=== PATIENT | female | born 1955 | race Caucasian/White ===

== ENCOUNTER 2020-03-11 12:24 | Inpatient (IN) | payer OTHER ==
[~2020-03-11] VITALS: Ht 177.8 cm; Wt 96.2 kg
--- NOTE | ~2020-03-11 | P ---
[facility] [place] [address] PROCEDURE REPORT Name: SAULO COMER Room #: 455-P [facility] IN M.R.#: [id number] Admission: 03/11/20 Attend Phys: Dilan Dejesus MD Discharge: Date of : 57 Report #: [id number] THIS REPORT FOR: cc: VIDHYA - No family physician/PCP FAM - No family physician/PCP Jayden Arita MD ~ CC: Dilan Dejesus [facility] physician/PCP Estuardo Jackson INPATIENT COLONOSCOPY REPORT BRIEF HISTORY: The patient is a 64-year-old woman with anemia and marked weight loss of 80 pounds. PREOPERATIVE DIAGNOSES: Anemia and weight loss. POSTOPERATIVE DIAGNOSES: 1. Small isolated ulcer, 60 cm. 2. Patchy exudative process, ascending colon, questionable colitis versus C. diff. 3. Moderate sigmoid diverticulosis coli. MEDICATIONS: Deep sedation with propofol per anesthesia. SPECIMENS: 1. Biopsy of proximal ascending colon, C. diff versus colitis. 2. Biopsy ulcer at 60 cm. ESTIMATED BLOOD LOSS: 3 mL. PROCEDURE: Colonoscopy to cecum and terminal ileum with biopsy. FINDINGS: Prior to propofol sedation, procedure of colonoscopy was discussed with the patient as well as potential risks and its complications. She indicates she understands and desires to proceed. DESCRIPTION OF PROCEDURE: With the patient in left lateral decubitus position, digital examination was completed, which revealed no abnormalities. Subsequently, the Olympus video colonoscope was introduced into the rectum, advanced under direct vision to the cecum, done with minimal difficulty. The cecum was identified by the ileocecal valve and the appendiceal orifice. With some difficulty, we were able to obtain a very brief look at the distal segment of terminal ileum, which was unremarkable. At that point, the scope was slowly withdrawn and careful circumferential views were obtained. Upon slow withdrawal of the scope, the prep was good. The mucosa was within normal limits, normal vascular pattern, normal light reflex. In the proximal ascending colon, there [facility] [address] [place] [address] PROCEDURE REPORT Name: SAULO COMER Room #: 455-P [facility] IN [facility].#: [id number] Admission: 03/11/20 Attend Phys: Dilan Dejesus MD Discharge: Date of : 56 Report #: [id number] was a patchy area of adherent exudative like material. I was able to wash some of this away and the underlying mucosa appeared to be intact. I did not see definite ulcerations, had a benign appearance. There was no evidence of mass or lesions. The exudative process raised the question of celiac disease, but it is very focal in this area of involvement is about 2 x 3 cm. Multiple biopsies were obtained. We also took a stool aspirate for C. diff toxin. Upon slow withdrawal of the scope, the mucosa was inspected. The mucosa otherwise was within normal limits, normal vascular pattern, normal light reflex. No abnormalities were noted until about 60 cm, at which point a shallow 15 x 15 mm ulcer was seen. There was surrounding erythema and it was flat. It had smooth and benign appearance. Biopsies were obtained. No other ulcers or inflammatory changes were seen elsewhere in the colon except as noted above. In the sigmoid colon, there was moderate diverticular disease without endoscopic evidence of diverticulitis. Scope was withdrawn in the rectum, no abnormalities were seen. Upon retroflexion, no abnormalities were seen. Scope was withdrawn. The patient tolerated the procedure well. DISPOSITION: The patient with findings as noted above. Since there was a patchy area in the proximal ascending colon, which might possibly be C. diff, we will empirically place her on metronidazole and awaits aspirate study and biopsies. However, none of the lesions I believe explains her anemia or weight loss. Please see upper endoscopy report for additional details. We will follow up on biopsies and samples obtained today. By: 1357 1421 Jayden Arita MD /nt
--- NOTE | ~2020-03-11 | P ---
[facility] [place] [address] PROCEDURE REPORT Name: SAULO COMER Room #: 455-P ADM IN M.R.#: [id number] Admission: 03/11/20 Attend Phys: Dilan Dejesus MD Discharge: Date of : 56 Report #: [id number] THIS REPORT FOR: cc: VIDHYA - No family physician/PCP VIDHYA - No family physician/PCP Jayden Arita MD ~ CC: Dilan Dejesus [facility] physician/PCP Estuardo Jackson INPATIENT UPPER ENDOSCOPY REPORT BRIEF HISTORY: The patient is a 64-year-old woman who was admitted to [facility] with anemia, 80-pound weight loss. She has had some regurgitation symptoms. PREOPERATIVE DIAGNOSES: Anemia and weight loss. POSTOPERATIVE DIAGNOSES: 1. Small gastric ulcer. 2. Erosive gastritis. MEDICATIONS: Deep sedation with propofol per anesthesia. SPECIMEN: Biopsies of ulcer and gastritis. ESTIMATED BLOOD LOSS: 3 mL. PROCEDURE: EGD with biopsy. FINDINGS: Prior to propofol sedation, procedure of upper endoscopy was discussed with the patient as well as potential risks and its complications. She indicates she understands and desires to proceed. DESCRIPTION OF PROCEDURE: With the patient in left lateral decubitus position, the Olympus video endoscope was inserted in the cervical esophagus under direct vision without difficulty. Examination of this organ through style length revealed normal esophageal mucosa down the squamocolumnar junction. No ulcers or erosions were seen. No bleeding lesions were seen. A hiatus hernia was not seen. There was no evidence of Lopez's mucosa. The scope was advanced into the stomach, was examined on end view as well as retroflexed views. There was a pattern of gastritis noted in the proximal stomach which was examined on end view as well as retroflexed views. No mass lesions were seen upon retroflexion. Examination of this distal stomach revealed a moderate diffuse gastritis with some fullness of the folds in the prepyloric antrum. In between the folds, one small ulcer was seen and it was about 3-4 mm in greatest dimension. It had a benign appearance. There were no stigmata of bleeding. There were scattered [facility] [address] [place] [address] PROCEDURE REPORT Name: SOULEYMANESAULO Room #: 455-P [facility] IN ..#: [id number] Admission: 03/11/20 Attend Phys: Dilan Dejesus MD Discharge: Date of : 56 Report #: [id number] erosions. Blood was not seen in the antrum of the stomach. The pylorus was unremarkable. Duodenal bulb was unremarkable. Postbulbar new sweep down to third portion was unremarkable. At that point, the scope was slowly withdrawn and careful circumferential views confirmed the above findings. The patient tolerated the procedure well. Small bowel biopsies obtained to exclude celiac disease. DISPOSITION: The patient with anemia and weight loss. She did have a small ulcer. I doubt this ulcer is responsible for her anemia. Also, I do not believe the upper endoscopic findings so far explain her weight loss. We will follow up on biopsies regarding celiac disease. Proceed with colonoscopy at this time. By: 1320 1329 Jayden Arita MD /nt
[~2020-03-11 12:24] MED LIST: AMLODIPINE BESYL5 M1 PO; BACTRIM DS TAB1 EACH PO; CRESTOR; DAKIN'S473 M2 TOP; DIFLUCAN150 MG PO; ELIQUIS5 MG PO; FLECAINIDE ACET50 M1 PO; FLEXERIL PO; FOLIC ACID1 MG PO; GABAPENTIN 100100 MG PO; IBUPROFEN 600600 M1 PO; KEFLEX500 M1 PO; KEFLEX500 M2 PO; KEFLEX500 MG PO; LEVOTHYROXINE25 MCG PO; MAGNESIUM400 MG PO; MELATONIN5 M1 PO; NEURONTIN 300M300 M2 PO; NORCO 5-325 TA1 EAC1 PO; NORCO 5-325 TA1 EACH PO; NORVASC10 MG PO; OMEPRAZOLE40 MG PO; PREDNISONE 10 M10 MG PO; TRAMADOL 50 MG50 MG PO; UNKNOWN CHOLESTEROL; ZANAFLEX4 MG PO; ZESTRIL
--- NOTE | 2020-03-11 16:48 | NUR ---
Pt arrived per ambulance at 1545 into 455 in stable condition.Dr Dejesus paged x3.Marleny guy in room admitting the pt at present.Will continue to monitor.
[2020-03-11 19:07] LABS: CALCIUM 8.7 mg/dL (8.5-10.1); CREATININE 1.2 mg/dL (0.6-1.0); POTASSIUM 4.9 mmol/L (3.5-5.1)
--- NOTE | 2020-03-11 19:21 | NUR ---
PATIENT DIRECT ADMIT FROM [facility]. PATIENT ADMITTED FOR ASCENDING PARALYSIS AND WEAKNESS. PATIENT STATES SHE HAS NOT AMBULATED X 12 DAYS, SHE HAS HAD RECENT FALLS THIS MONTH. PATIENT HAS BRUISING OVER BOTH ARMS, SMALL SKIN TEAR, AND SMALL ABRASION TO LEFT ARM. PATIENT C/O GENERALIZED PAIN OVER BODY. REGULAR DIET ORDER PER DR FLETCHER, PATIENT NEEDS ASSISTANCE WITH MEALS/SET UP. DR FLETCHER SAW THE PATIENT, PUT ORDERS IN [employer]. ADMISSION DONE REPORT GIVEN TO AMANDA/FRANCESCA.
[2020-03-11 19:53] VITALS: BP 91/60
--- NOTE | 2020-03-11 23:42 | NUR ---
Assumed pt care at 1900. A/OX4,VSS. C/o pain all over medicated with [place] with relief reported. Pt's current order is M/S,questioning if should be M/T? Kesha EDDY notified;okay to have pt on telemetry and verify with MD in AM,tele monitor put on pt. Pt's incontinent of B&B,excoriation noted on rectal area,moisture barrier applied and female external cath applied. Will continue to check to make sure pt stays clean and dry. Fall precautions in place,calling approp for help. Will continue monitoring pt.
[2020-03-12 00:27] VITALS: BP 123/83
[2020-03-12 04:00] VITALS: BP 112/67
[2020-03-12 05:49] LABS: ALBUMIN 2.7 g/dL (3.4-5.0); CALCIUM 8.6 mg/dL (8.5-10.1); CREATININE 1.3 mg/dL (0.6-1.0); MAGNESIUM 2.4 mg/dL (1.8-2.4); POTASSIUM 4.1 mmol/L (3.5-5.1); TOTAL BILIRUBIN 0.4 mg/dL (0.2-1.0); TOTAL PROTEIN 6.3 g/dL (6.4-8.2)
[2020-03-12 06:30] LABS: OBSERVED RETIC COUNT 1.87 % (0.6-2.6)
[2020-03-12 07:36] VITALS: BP 108/75
[2020-03-12 09:38] LABS: ANISOCYTOSIS SLIGHT; PLATELET COUNT 361 thou/uL (150-400); PLATELET ESTIMATE NORMAL
[2020-03-12 09:39] LABS: MACROCYTES 3+
[2020-03-12 09:48] LABS: HEMATOCRIT 26.9 % (37.0-47.0); HEMOGLOBIN 9.1 gm/dL (12.0-15.0); MCH 44.9 pg (26.0-34.0); MCHC 33.8 g/dL (28.0-37.0); RBC 2.03 mil/uL (4.20-5.00); WBC 14.5 thou/uL (4.0-11.0)
--- NOTE | 2020-03-12 14:21 | NUR ---
PT ADMITTED RELATED TO ASCENDING PARALYSIS. CM REVIEWED CHART AND SPOKE WITH CARE TEAM. CM CALLED AND SPOKE WITH PT AT BEDSIDE THIS DAY. PT APPEARED TO BE A&O X4. CM ROLE INTRODUCED. PT INDICATED THAT SHE LIVES IN A DUPLEX IN [facility] WITH NO STEPS TO ENTER AND NO STEPS INSIDE. PT INDICATED HER TWO GRANDSONS RESIDE WITH HER 19 AND 18. 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 PT INDICATED NO HH HX. PT INDICATED HER PCP IS SR. BURNETT IN [facility]. PT IS RECEPTIVE TO POST ACUTE CARE STAY EITHER 5N OR SNF NEAR [place] IF RECOMMENDED UPON DC. CM TO FOLLOW INDICATED WITH DC PLANNING.
[2020-03-12 15:38] VITALS: BP 119/78
--- NOTE | 2020-03-12 19:30 | NUR ---
Assumed pt care this am, on tele and on Afib seen by cardiology, medication given. 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 COVID test done awaiting results, MRI done today as well. External mcdonald in place draining light yellow urine, to be on clear liquids plan is to have an EGD and colonoscopy on 03/14. Skin tear was mentioned by the pt when she went down for the MRI but did not want the would to be opened until tomorrow. Pain was managed with medications, POC followed with no signs or verbalizations of distress noted. Did not have a BM today, excoriation noted on the liu rectal area, barrier cream placed. Endorsed to the night nurse.
[2020-03-12 19:40] VITALS: BP 109/66
[2020-03-13 04:00] VITALS: BP 91/53
--- NOTE | 2020-03-13 04:50 | NUR ---
Assumed pt care at 1900. A/OX4,VSS.C/o pain to shoulders/neck medicated per EMAR with relief reported. AFIB on the monitor,asymptomatic. Pt is incontinent of urine applied an external catheter but not successful d/t pt moving up/down a lot in bed. Pericare done and moisture barrier applied as needed. IV changed to RAC d/t clotting off w/o any problems. Fall precautions in place,calls approp for help. Resting quietly at this time,will continue to monitor pt.
[2020-03-13 05:32] LABS: ALBUMIN 2.4 g/dL (3.4-5.0); DIRECT BILIRUBIN 0.2 mg/dL (<0.1-0.2); TOTAL BILIRUBIN 0.4 mg/dL (0.2-1.0); TOTAL PROTEIN 5.8 g/dL (6.4-8.2)
[2020-03-13 07:47] VITALS: BP 95/61
--- NOTE | 2020-03-13 08:00 | HC ---
[facility] [place] [address] CONSULTATION Name: SAULO COMER Room #: 455-P ADM IN M.R.#: [id number] Admission: 03/11/20 Attend Phys: Dilan Dejesus MD Discharge: Date of : 56 Report #: [id number] THIS REPORT FOR: cc: VIDHYA - No family physician/PCP VIDHYA - No family physician/PCP Brooks Greenberg MD ~ CC: Dilan Dejesus [facility] physician/PCP Estuardo Jackson MD DATE OF SERVICE: 03/12/2020 REASON FOR CONSULTATION: Macrocytic anemia. 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 She also gives a history of about 80-pound weight loss over the last 2 months, she thinks in part due to poorly fitting dentures and actually getting the dentures finally. She does see that she eats bread several times a week, also red meat once or twice per week. Has been on iron pill, was on B12 supplement, was not on a multivitamin. At the other institution, she was found to have some questionable spinal stenosis and was referred here for further evaluation, I believe, she also had a spinal tap. The patient denies any previous blood disorders per se. At the outside hospital, hemoglobin was 9 with an MCV of 131.3, retic count is low, I believe, around 0.03 ____ B12 was normal. Thyroid studies were normal. White count was 13.2 with a fairly normal differential. Platelets were 246. I have also noted the rheumatoid factor was positive, though she does not have a history of rheumatoid arthritis per se. Creatinine was normal around 1. UA did have a few 3-10 red cells. If I recall, no colonoscopy in recent times or EGD in recent times. 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 Smokes, rarely, maybe 2 or 3 cigarettes per week. Alcohol, maybe 2 or 3 beverages per month when she plays cards. FAMILY HISTORY: Mother is still alive and spry, but has some health issues. Father had some lung troubles, not cancer. Two brothers, two sisters without specific illnesses. A 43-year-old daughter who reportedly does street drugs such as meth. PAST MEDICAL HISTORY: As mentioned above, has the ascending progressive neuromuscular weakness, been seen by Neurology and Neurosurgery. Also, new onset atrial fibrillation and RVR, also had the hypertension, though less [facility] [address] [place] [address] CONSULTATION Name: SAULO COMER Room #: 455-P [facility] IN .R.#: [id number] Admission: 03/11/20 Attend Phys: Dilan Dejesus MD Discharge: Date of : 56 Report #: [id number] treated now that she has lost 80 pounds, also had history of smoking, history of hypothyroid. PHYSICAL EXAMINATION: GENERAL: The patient appears her stated age. She is alert and oriented x 3. LUNGS: Clear. HEART: Does, may be, have a murmur and does have some frequent irregularity. LYMPHATICS: No enlarged lymph nodes in the supraclavicular, cervical, axillary or inguinal region. ABDOMEN: Quite obese. EXTREMITIES: Without clubbing or cyanosis. NEUROMUSCULAR: Deferred to others. LABORATORY DATA: As mentioned above, has some macrocytosis, though very low folate, ____, retic count not elevated. Total bilirubin not elevated. ASSESSMENT AND PLAN: 1. Macrocytic anemia with low folate. Strongly suggest this is folate deficiency, though I am not sure why, though she has had an 80-pound weight loss and poor eating. We will consult Gastroenterology to see if they think she needs an esophagogastroduodenoscopy to look for sprue or something other enteropathy. Agree with replacement. At this time, would not lean towards bone marrow biopsy, but will await peripheral smear review. Transfuse as needed. 2. Ascending weakness, unsure how much of this could be folate deficiency versus stenosis. We will defer to Neurology and Neurosurgery. 3. Obesity. Still obese with an 80-pound weight loss. Defer to others management. 4. Hypertension. Meds per others. 5. Atrial fibrillation with rapid ventricular response, rate control and anticoagulants per others. We will follow with you. <ELECTRONICALLY SIGNED> By: Brooks Greenberg MD 03/13/20 0800 0915 1214 Brooks Greenberg MD /nt
[2020-03-13 11:06] VITALS: BP 97/73
[2020-03-13 15:33] VITALS: BP 104/53
--- NOTE | 2020-03-13 16:14 | NUR ---
PHYSICIAN ANTICIPATING SURGERY FOLLOW UP IN 4-6 WEEKS PER NOTES. CM SPOKE WIHT PT AGAIN CARE TEAM ARE RECEOMMENDING POST ACUTE CARE STAY UPON DC. CM EXPLAINED DIFFERENCE BETWEEN ACUTE REHAB VS SNF. PT INDICATED SHE DOESN'T WANT CARE HOME SETTING BUT HOPES TO BE IN REHAB UP UNTIL SURGERY. CM INDICATED THAT SM WASN'T CERTAIN IS LOS AT ACUTE REHAB WOULD BE 4-6 WEEKS THAT PT MIGHT NEED TO DC HOME WITH HH PRIOR TO THAT. PT INDICATED THAT SHE WOULD THINK ABOUT IT THIS EVENING. CM TO FOLLOW UP IN THE AM. CM TO FOLLOW INDICATED WITH DC PLANNING.
[2020-03-13 16:59] LABS: % SATURATION 19 % (20-39); IRON 27 ug/dL (50-170); TIBC 139 ug/dL (250-450)
--- NOTE | 2020-03-13 19:14 | NUR ---
Assumed pt care this am, BP on the soft side Afib and tachy on the monitor seen by cardiology medications changed. INcontinent of both bowel and bladder. Left arm skin tear noted wound dressing done. Kept on clear liquids. Stayed on the bed, is non abulatory for the shift. Bowel prep began at 4, has started to move bowels, liu care anbd complete bed change done as needed. POC followed, pain is managed with medications and patch, partial relief noted. Consents for EGD and colonoscopy in the chart. POC followed with no signs or verbalizations of distress, endorsed to the night nurse.
[2020-03-13 19:55] VITALS: BP 103/56
[2020-03-14 01:06] LABS: IgG 947 mg/dL (586-1602)
[2020-03-14 03:06] LABS: HAV IgM AB (ANTI-HAV IgM) Negative (Negative); HEPATITIS B SURFACE AG Negative (Negative); HEPATITIS C VIRUS AB <0.1 (0.0-0.9)
--- NOTE | 2020-03-14 04:58 | NUR ---
Assumed pt care at 1900. A/OX4,VSS.C/o pain to shoulders/neck, medicated per EMAR with relief reported. Pt's incontinent of urine,female catheter applied and functional at this time,did complete bowel prep at shift change and only having smears at this time;yet to drink some more golytely this morning. Lovenox held at HS per BALLASTER Kesha order. AFIB w/RVR on telemetry ranging 90-120,asymptomatic and resting quietly at this time w/o any distress noted. Fall precautions in place,will continue to monitor pt.
[2020-03-14 05:37] LABS: ABSOLUTE NEUTROPHILS 8.1 thou/uL (1.4-8.2); BASOPHILS 0.7 % (0.0-2.0); EOSINOPHILS 4.1 % (0.0-3.0); HEMATOCRIT 26.3 % (37.0-47.0); HEMOGLOBIN 8.9 gm/dL (12.0-15.0); LYMPHOCYTES 18.2 % (24.0-44.0); MCH 45.5 pg (26.0-34.0); MCHC 33.9 g/dL (28.0-37.0); MCV 134.4 fL (80.0-100.0); MONOCYTES 6.5 % (1.0-8.0); PLATELET COUNT 308 thou/uL (150-400); POLYS 70.5 % (36.0-66.0); RBC 1.95 mil/uL (4.20-5.00); RDW 15.1 % (10.5-14.5); WBC 11.5 thou/uL (4.0-11.0)
[2020-03-14 06:03] LABS: ALBUMIN 2.2 g/dL (3.4-5.0); CALCIUM 8.5 mg/dL (8.5-10.1); CREATININE 0.8 mg/dL (0.6-1.0); MAGNESIUM 2.2 mg/dL (1.8-2.4); POTASSIUM 4.3 mmol/L (3.5-5.1); TOTAL BILIRUBIN 0.4 mg/dL (0.2-1.0); TOTAL PROTEIN 5.5 g/dL (6.4-8.2)
[2020-03-14 07:20] VITALS: BP 118/74
[2020-03-14 08:07] LABS: HEMATOLOGY COMMENTS Note: (()); HEMOGLOBIN 8.9 g/dL (11.1-15.9)
[2020-03-14 14:07] LABS: ANA INTERPRETATION Negative (Negative)
[2020-03-14 15:24] VITALS: BP 129/73
--- NOTE | 2020-03-14 19:22 | HC ---
[facility] [place] [address] [place] [address] CONSULTATION Name: SAULO COMER Room #: 455-P ADM IN M.R.#: [id number] Admission: 03/11/20 Attend Phys: Dilan Dejesus MD Discharge: Date of : 56 Report #: [id number] THIS REPORT FOR: cc: VIDHYA - No family physician/PCP VIDHYA - No family physician/PCP Stephen Holguin MD ~ CC: Dilan KEE physician/PCP Estuardo Jackson HISTORY OF PRESENT ILLNESS: This patient was seen by me in [facility], but then she got transferred to [facility]. I was not consulted and I was not involved with the care here at [place], but I am dictating this note to clarify the situation to help people managing this patient. I got a call yesterday from [facility] MARIA and PA of Dr. Petty that they will like me to do an EMG on inpatient. When I talked to them more about the patient, it looks like it turned out to be the patient, whom I have seen in [place]. I discussed with them that I had recommended multiple things and the first thing we need to do is we need to ask an opinion from a neurosurgeon or a spine surgeon whether the patient's pathology demonstrated on C-spine can explain her symptoms or not. To me, symptom looks pretty unusual. I had talked to a neurosurgeon, Dr. Young and he was going to do that, but now as I understand from the record, Dr. Petty is following up this patient and I think that is the first question he needs to address whether the patient's symptoms can be explained on the basis of the patient's cervical spine pathology. If that is not the case, then a neuromuscular workup needs to be done. The ideal place for that is at [facility] where they have about 3 neuromuscular subspecialists. They also have facility to do single fiber EMG as well as repetitive stimulation. If the patient cannot be transferred to [facility] from inpatient, then that appointment should be made with them by calling them fast. The patient also needs a Rheumatology consult because her rheumatoid factor is high and I do not know if Dr. Gonzalez, the manager intermediate, comes here or not. The patient gives a history to us that she drinks alcohol only once a month, but it looks like she drank alcohol in large amount, which she says until 10 years ago, but when I reviewed the previous record in [place], it looks like the patient was seen there, what they describe as an intoxicated state much later than that. Because of that, I had recommended doing thiamine for about 3 days to the patient in addition to folic acid. She also needs voltage-gated calcium channel antibodies to look for any possibility of myasthenic syndrome, but by hospital policy that can be sent only as an outpatient and I will suggest arranging that as an outpatient. Repeat spinal tap should be done only after the above questions are done, but that looks like a redundant issue, because the patient, from the notes, looks like has declined that. I am not involved with this patient's care anymore, because I am not consulted, [facility] [address] [place] [address] CONSULTATION Name: SAULO COMER Leonie Room #: 455-P ADM IN M.R.#: [id number] Admission: 03/11/20 Attend Phys: Dilan Dejesus MD Discharge: Date of : 56 Report #: [id number] but I just wanted to clarify the situation, so that it might provide help to the other people managing this patient's now. <ELECTRONICALLY SIGNED> By: Stephen Holguin MD 03/14/20 1922 1441 1514 Stephen Holguin MD /nt
[2020-03-14 19:27] VITALS: BP 83/58
--- NOTE | 2020-03-14 19:56 | NUR ---
ASSUMED PT CARE THIS AM. PT IS A&OX4, AND IS ON TELEMETRY SHOWING A FIB WITH RVR. PT IS ON BEDREST, IS INCONTINENT OF BOWEL AND BLADDER, AND HAS A PUREWICK IN PLACE. PT HAD AN EGD AND A COLONOSCOPY TODAY, AND WAS NPO PRIOR TO THE PROCEDURES. PT HAD DIARRHEA THIS AM AND HAS NOT HAD A BM FOLLOWING THE PROCEDURE. PT RECEIVED ADEQUATE HYDRATION AND NUTRITION, AND RESPONDED WELL TO ALL PAIN MEDICATION GIVEN. PT HAS A SKIN TEAR ON HER ARM THAT IS COVERED WITH A DRESSING. PT'S FOREARMS HAVE BRUISING, AND SCABS ON THE LEFT FOREARM. PT WAS PLEASENT AND IS POSITIVE ABOUT HER TREATMENT PLAN.
[2020-03-15 08:00] VITALS: BP 102/71
[2020-03-15 09:27] VITALS: BP 102/71
--- NOTE | 2020-03-15 12:44 | NUR ---
PT DISCHARGING TODAY TO [facility] FAXED DC ORDERS/SUMMARY TO FACILITY SPOKE WITH NENITA IN ADM SHE RECEIVED ORDERS. SHE TRIED TO SET UP TRANSPORT WITH [facility] BUT THEY COULD NOT PICK PT UP TIL 1800. DP ARRANGED TRANSPORT BY AMBULANCE WITH [facility] FOR 1500 TODAY. NOTIFIED PT'S SISTER ([place]O) OF DC AND TIME OF TRANSPORT. SHE REQUESTED IS I COULD HAVE RN CALL TO UPDATE ON PT STATUS SPOKE WITH NURSE SHE HAS NUMBER AND WILL CALL SISTER. CHART COPY PER US. RN TO CALL REPORT TO [phone].
--- NOTE | 2020-03-19 18:06 | PATH ---
[facility] [address] [address] PATHOLOGY RPT PROCEDURE Name: LIZZY COMER Room #: 455-P DIS IN M.R.#: [id number] Admission: 03/11/20 Date of : 57 Discharge: 03/15/20 Report #: [id number] Path Case #: [id number] [facility] Accession Number: [id number] . 01 Material submitted: . PART A: small bowel - BIOPSY OF SMALL BOWEL R/O CELIAC REGARDING WT LOSS PART B: stomach - BIOPSY OF GASTRITIS R/O H PYLORI PART C: colon - BIOPSY OF PROXIMAL ASCENDING R/O C DIFF VS COLITIS. Modifiers: proximal, ascending PART D: colon - BIOPSY OF ULCER AT 60CM . 01 Clinician provided ICD-10: M47.12 I48.20 . 01 Clinical history: . OTHER SPONDYLOSIS WITH MYELOPATHY,CERVICAL REGION CHRONIC ATRIAL FIBRILLATION UNSPECIFIED . 02 Diagnosis: A. Small bowel mucosa, small bowel, endoscopic biopsy: - No significant diagnostic abnormalities present. - Negative for villous blunting or increase in intraepithelial lymphocytes. . B. Gastric mucosa, gastritis, rule out H. pylori, endoscopic biopsy: - Helicobacter pylori induced moderate active gastritis. - Negative for intestinal metaplasia or atrophy or dysplasia. - Numerous Helicobacter pylori organisms present on the properly controlled immunohistochemical stain performed. . C. Large intestinal mucosa, proximal ascending, rule out C diff versus colitis, endoscopic biopsy: - Moderate active colitis, see comment. - Negative for dysplasia or malignancy. . D. Large intestine, ulcer at 60 cm, endoscopic biopsy: - Fibrotic lamina propria associated with reactive hyperplasia. - Negative for acute colitis. - Negative for ulceration. - Negative for dysplasia or malignancy. (IUV:pit 03/19/2020) [facility] 03/19/2020 1422 Local . 02 Comment: Part C and D: Examination of the "proximal ascending: biopsy tissue shows a markedly expanded lamina propria with active cryptitis as well as [facility] [address] [place] [address] PATHOLOGY RPT PROCEDURE Name: LIZZY COMER Room #: 455-P DIS IN M.R.#: [id number] Admission: 03/11/20 Date of : 57 Discharge: 03/15/20 Report #: [id number] Path Case #: [id number] multiple crypt abscesses. Basal plasmacytosis as well as rare crypt architectural abnormalities are identified as well. The intensity of inflammation is similar within all the fragments sampled. Explosive ulcers to suggest C diff colitis are not identified. Findings may be suggestive of active colitis due to either infectious etiology or inflammatory bowel disease or active diverticulitis. There are no viral inclusions present. . The "ulcer at 60 cm" shows no evidence of ulceration; however, shows markedly hyperplastic surface epithelium with an expanded and fibrotic lamina propria. . There is no evidence of dysplasia or malignancy present within any of the biopsy fragments sampled. Please correlate clinically and follow up as indicated. (IUV:pit 03/19/2020) . 02 Electronically signed: . Sierra Peterson MD, Pathologist NPI- [id number] . 01 Gross description: . A. The specimen is received in formalin, labeled "Lizzy Nevius, biopsy of small bowel, R/O celiac regarding weight loss". Received are six segments of pale jolley soft tissue ranging in size from 0.3 to 0.5 cm in maximum dimensions. The specimen is submitted entirely in cassette A1. . B. The specimen is received in formalin, labeled "Lizzy Nevius, biopsy of gastritis, R/O H. pylori". Received are five segments of pale jolley soft tissue ranging in size from 0.2 to 0.5 cm in maximum dimensions. The specimen is submitted entirely in cassette B1. . C. The specimen is received in formalin, labeled "Lizzy Nevius, biopsy of proximal ascending, R/O C. difficile versus colitis". Received are six segments of pale jolley soft tissue ranging in size from 0.2 to 0.3 cm in maximum dimensions. The specimen is submitted entirely in cassette C1. . D. The specimen is received in formalin, labeled "Lizzy Nevius, biopsy of ulcer at 60 cm". Received are three segments of pale jolley soft tissue ranging in size from 0.2 to 0.4 cm in maximum dimensions. The specimen is submitted entirely in cassette D1. (CAA; 03/18/2020) QAC/QAC 03/18/2020 1140 Local . 02 Pathologist provided ICD-10: K29.70, B96.81, K52.9 . 02 [facility] . [address] [address] PATHOLOGY RPT PROCEDURE Name: LIZZY COMER Room #: 455-P DIS IN M.R.#: [id number] Admission: 03/11/20 Date of : 57 Discharge: 03/15/20 Report #: [id number] Path Case #: [id number] Specimen Comment: A courtesy copy of this report has been sent to [phone], [phone] Specimen Comment: [phone], Specimen Comment: Report sent to , / Performed at: [address], [place] [id number] MD Mao Roa MD Phone: [phone] Performed at: [address] [id number] MD Sierra Peterson MD Phone: [phone]
== END 2020-03-15 17:00 | DRG 682 ==
LOC: 4W 12:24
PROVIDERS: Internal Medicine Hematology & Oncology; Nurse Practitioner; Specialist; ADMIT Hospitalist; ATTEND Hospitalist
PROC: 0DBN8ZX Excision of Sigmoid Colon, Via Natural or Artificial Opening Endoscopic, Diagnostic (ICD-10-PCS; principal; 2020-03-14)
PROC: 0DB68ZX Excision of Stomach, Via Natural or Artificial Opening Endoscopic, Diagnostic (ICD-10-PCS; principal; 2020-03-14)
PROC: 0DB88ZX Excision of Small Intestine, Via Natural or Artificial Opening Endoscopic, Diagnostic (ICD-10-PCS; principal; 2020-03-14)
DX: N17.0 Acute kidney failure with tubular necrosis (principal); R65.11 Systemic inflammatory response syndrome (SIRS) of non-infectious origin with acute organ dysfunction; E43 Unspecified severe protein-calorie malnutrition; E87.1 Hypo-osmolality and hyponatremia; N39.0 Urinary tract infection, site not specified; I48.20 Chronic atrial fibrillation, unspecified; K63.3 Ulcer of intestine; M47.12 Other spondylosis with myelopathy, cervical region; D53.9 Nutritional anemia, unspecified; M48.02 Spinal stenosis, cervical region; D72.819 Decreased white blood cell count, unspecified; K29.70 Gastritis, unspecified, without bleeding; K25.9 Gastric ulcer, unspecified as acute or chronic, without hemorrhage or perforation; R63.4 Abnormal weight loss; K57.30 Diverticulosis of large intestine without perforation or abscess without bleeding; F17.210 Nicotine dependence, cigarettes, uncomplicated; E53.8 Deficiency of other specified B group vitamins; I10 Essential (primary) hypertension; E78.00 Pure hypercholesterolemia, unspecified; E78.5 Hyperlipidemia, unspecified; G89.29 Other chronic pain; M54.9 Dorsalgia, unspecified; E66.9 Obesity, unspecified; M62.81 Muscle weakness (generalized); R31.9 Hematuria, unspecified; E87.6 Hypokalemia; E83.42 Hypomagnesemia; E03.9 Hypothyroidism, unspecified; Z68.30 Body mass index [BMI] 30.0-30.9, adult; Z79.01 Long term (current) use of anticoagulants; Z72.89 Other problems related to lifestyle; Z20.828 Contact with and (suspected) exposure to other viral communicable diseases
CPT/HCPCS: 10045; 10047; 62110; 62900; 70005